=== PATIENT | male | born 1970 | race Hispanic/Latino ===

== ENCOUNTER 2023-01-28 10:46 | Day surgery (SDC) | payer OTHER, BC ==
[2023-01-26 15:36] VITALS: BMI 32.8
[2023-01-28] MEDS ORDERED: FENTANYL 50 MCG/ML 1 ML VIAL ONE ×3 (12:54→17:17)
[2023-01-28] MEDS ORDERED: Ropivacaine 0.5% HCl/PF (150 MG/30 ML VIAL) ONE (12:54)
[2023-01-28] MEDS ORDERED: Fentanyl 250 MCG/5 ML VIAL ONE (14:18)
[2023-01-28] MEDS ORDERED: Midazolam HCl 2 mg/2 ml Vial ONE (14:40)
[2023-01-28] MEDS ORDERED: CEFAZOLIN 2 GM VIAL ONE (14:47)
[2023-01-28] MEDS ORDERED: Sodium Chloride 0.9% 100 ML ONE (14:47)
[2023-01-28] MEDS ORDERED: Lidocaine 1% PF 5 ML VIAL ONE (15:04)
[2023-01-28] MEDS ORDERED: Ketorolac Tromethamine 30 MG/ML VIAL ONE (15:04)
[2023-01-28] MEDS ORDERED: Ondansetron PF 4 MG/2 ML Vial ONE (15:04)
[2023-01-28] MEDS ORDERED: PROPOFOL 200 MG/20 ML VIAL ONE (15:04)
[2023-01-28] MEDS ORDERED: PHENYLEPHRINE-NS 100 MCG/ML 10 ML SYRINGE ONE (15:04)
== END 2023-01-28 18:10 | disposition home or self-care (01) ==
LOC: SDC 10:46
PROVIDERS: ATTEND Orthopaedic Surgery
PROC: 0PSJ04Z Reposition Left Radius with Internal Fixation Device, Open Approach (ICD-10-PCS; principal; 2023-01-28)
DX: S52.562A Barton's fracture of left radius, initial encounter for closed fracture (principal); S52.612A Displaced fracture of left ulna styloid process, initial encounter for closed fracture; Z79.1 Long term (current) use of non-steroidal anti-inflammatories (NSAID); Z79.891 Long term (current) use of opiate analgesic; V89.2XXA Person injured in unspecified motor-vehicle accident, traffic, initial encounter
CPT/HCPCS: C1713; J1885; J2250; J2405; J2704; J2795; J3010; J3490